=== PATIENT | male | born 1990 | race Caucasian/White ===

== ENCOUNTER 2023-11-07 23:26 | Emergency (ER) | payer SELFPAY ==
[2023-11-07 23:35] VITALS: BP 137/86; PULSE 77; RESP 18; TEMP 98.3; BMI 29.2
[2023-11-08] MEDS ORDERED: KETOROLAC TROMETHAMINE 30 MG/1 ML VIAL ONE (02:21)
[2023-11-08] MEDS: KETOROLAC TROMETHAMINE 30 MG/1 ML VIAL IM ONE (02:24)
== END 2023-11-08 02:49 | disposition home or self-care (01) ==
LOC: JER 23:26
PROC: 3E0133Z Introduction of Anti-inflammatory into Subcutaneous Tissue, Percutaneous Approach (ICD-10-PCS; principal; 2023-11-08)
DX: R22.0 Localized swelling, mass and lump, head (principal); K02.9 Dental caries, unspecified; K08.89 Other specified disorders of teeth and supporting structures
CPT/HCPCS: 99284-25

== ENCOUNTER 2023-12-11 14:07 | Emergency (ER) | payer OTHER ==
[2023-12-11 14:18] VITALS: BP 121/77; PULSE 68; RESP 18; TEMP 98.3; BMI 27.4
[2023-12-11] MEDS ORDERED: IBUPROFEN 600 MG TABLET (FP) PO ONE (15:14)
[2023-12-11] MEDS: PENICILLIN V POTASSIUM 500 MG TABLET PO ONE (15:21)
[2023-12-11] MEDS: IBUPROFEN 600 MG TABLET (FP) PO ONE (15:21)
== END 2023-12-11 16:14 | disposition home or self-care (01) ==
LOC: JERFT 14:07
DX: R22.0 Localized swelling, mass and lump, head (principal); K04.7 Periapical abscess without sinus; K08.89 Other specified disorders of teeth and supporting structures
CPT/HCPCS: 99283-25